=== PATIENT | female | born 1965 ===

== ENCOUNTER 2016-11-10 11:34 | Emergency (ER) | payer SELFPAY ==
[~2016-11-10] VITALS: Ht 165.1 cm; Wt 63.0 kg
[2016-11-10 11:40] VITALS: Ht 165.1 cm; Wt 63.0 kg
[2016-11-10] MEDS ORDERED: NPH10OT BOTH EARS (13:52)
[2016-11-10] MEDS ORDERED: AZIT500T5 PO (13:54)
[2016-11-10] MEDS ORDERED: NAPR-688 PO (13:55)
[2016-11-10] MEDS ORDERED: HYDR-906 PO (13:56)
--- NOTE | 2016-11-10 14:00 | ERD ---
ER Documentation Chief Complaint Date/Time DATE: 11/10/16 TIME: 13:56 Chief Complaint LEFT AND RIGHT EAR PAIN X 3 DAYS HPI 51-year-old female with bilateral ear pain for 1 month that is worse on the left side. She feels as something might be moving inside of it. She does not get frequently ear infections. She's had no fevers or chills and is able to eat normally. She does have decreased hearing in her left ear. ROS All systems reviewed and are negative except as per history of present illness. Medications Home Meds Active Scripts Hydrocodone/Acetaminophen (New Site 5-325 Tablet) 1 Each Tablet, 1 EACH PO Q6, #8 TAB Prov:SHEREE KEARNS DO 11/10/16 Naproxen* (Naproxen*) 500 Mg Tablet, 500 MG PO BID Y for PAIN, #20 TAB Prov:SHEREE KEARNS DO 11/10/16 Azithromycin* (Azithromycin*) 500 Mg Tablet, 500 MG PO DAILY, #3 TAB Prov:SHEREE KEARNS DO 11/10/16 Neomycin/Polymyxin/Hydrocort* (Cortisporin* Otic) 10 Ml Susp, 4 DROP BOTH EARS QID, #1 EA Prov:SHEREE KEARNS DO 11/10/16 Physical Exam Vitals Vital Signs Date Time Temp Pulse Resp B/P Pulse Ox O2 Delivery O2 Flow Rate FiO2 11/10/16 11:40 98.4 98 19 143/89 98 Physical Exam Const: [] No distress Head: Atraumatic Eyes: Normal Conjunctiva ENT: Normal External Ears, Nose and Mouth. Left ear with swollen ear canal with white plaquing throughout, tabetic membrane is not visible in this ear. Ertapenem memory with mild inferior erythema. Neck: Full range of motion..~ No meningismus. Procedures/MDM Otitis externa with possible otitis media. One month of symptoms. Discharging the patient with Cortisporin otic drops as well as azithromycin 3 day course. A Linda giving him naproxen and a few New Site for pain. Recommending that she see her primary care doctor in the next few days as well as obtain an ENT referral. Return precautions were also given. Departure Diagnosis: Primary Impression: Otitis media Additional Impression: Otitis externa Condition: Stable Patient Instructions: Otitis Media, Abx Tx (Adult), External Ear Infection ( Adult) Additional Instructions: Call your primary care doctor TOMORROW for an appointment during the next 2-3 days. Request a referral for ENT. See the doctor sooner or return here if your condition worsens before your appointment time. SHEREE KEARNS DO Nov 10, 2016 14:00
== END 2016-11-10 14:55 | disposition home or self-care (01) ==
LOC: E/R 11:34
DX: H66.92 Otitis media, unspecified, left ear (principal); H60.92 Unspecified otitis externa, left ear
CPT/HCPCS: 99284